=== PATIENT | female | born 1945 ===

== ENCOUNTER → 2023-06-08 11:22 | Outpatient (REF) | payer MEDICARE, OTHER, SELFPAY | LOC: MRI 3T 11:22 | PROVIDERS: ATTENDING PHYSICIAN Orthopaedic Surgery; FAMILY PHYSICIAN Family Medicine | DX: M25.562 Pain in left knee (principal) | CPT/HCPCS: 73721 ==

== ENCOUNTER 2024-06-19 19:02 | Observation (INO) | payer OTHER, SELFPAY ==
[2024-06-19] VITALS (8 sets, daily range): BP systolic 118–159; BP diastolic 62–95; BMI 17.6
[2024-06-19 16:29] LABS: % Basophils 0.7 % (0-2); % Eosinophils 3.4 % (0-6); % Immature Granulocytes 0.6 % (0-0.5); % Lymphocytes 15.2 % (20.5-51.1); % Monocytes 10.2 % (1.7-9.3); % Neutrophils 69.9 % (42.2-75.2); Absolute Basophils 0.1 10^3/uL (0-0.2); Absolute Eosinophils 0.3 10^3/uL (0-0.7); Absolute Immature Granulocytes 0.1 10^3/uL (0-0.05); Absolute Lymphocytes 1.5 10^3/uL (1.2-3.4); Hematocrit 35.7 % (37.0-47.0); Hemoglobin 11.8 g/dL (12.0-16.0); Mean Corp Hgb Conc. 33.1 g/dL (33.0-37.0); Mean Corpuscular Hgb 25.4 pg (27.0-31.0); Mean Corpuscular Volume 76.9 fL (81.0-99.0); Mean Platelet Volume 8.1 fL (7.4-10.4); Nucleated Red Blood Cells % 0 %; Platelet Count 364 10^3/uL (130-400); Red Blood Cell Count 4.64 10^6/uL (4.20-5.40); Red Cell Dist. Width 13.8 % (11.5-14.5); White Blood Cell Count 9.9 10^3/uL (4.8-10.8)
[2024-06-19 16:47] LABS: ALT (SGPT) 46 U/L (0-35); AST (SGOT) 27 U/L (14-36); Albumin 3.7 g/dl (3.5-5.0); Alkaline Phosphatase 102 U/L (38-126); Blood Urea Nitrogen 18 mg/dl (7-17); Calcium 9.2 mg/dl (8.4-10.2); Carbon Dioxide 29 mmol/L (22-30); Chloride 92 mmol/L (98-107); Estimated Creatinine Clearance 38 ml/min; Glucose 113 mg/dl (70-99); Lipase 351 U/L (23-300); Sodium 129 mmol/L (135-145); Total Bilirubin 0.6 mg/dl (0.2-1.3); Total Protein 6.2 g/dl (6.3-8.2); eGFR > 60.00
[2024-06-19] MEDS: ZOFRAN ODT (ORALLY DISINTEGRATING) 4 MG PO (17:34)
[2024-06-19] MEDS: TYLENOL 650 MG PO (17:37)
[2024-06-19] MEDS: ROXICODONE 5 MG PO (17:38)
--- NOTE | 2024-06-19 17:56 | ED.GENMED ---
History of Present Illness
General
Chief Complaint: Back Pain
Time Seen by Provider: 06/19/24 15:31
History of Present Illness
History of Present Illness:
78-year-old female presents from [facility] for evaluation of intractable back pain. She had a fall approximately 1 month ago and was felt to have sustained rib injuries, subsequently was taken back to the hospital at [facility] 1 week ago due to a repeated fall and inability to get up. She was admitted to the hospital at that time due to a thoracic spine compression fracture and 4 days ago was discharged to nursing care. She has been on tramadol and lidocaine
patches without pain relief and has been getting essentially no physical therapy at her facility. She is unable to get herself up to go to the bathroom at this time. Family and the patient are not pleased with the care at [facility] and are
requesting alternative nursing facility. She denies any numbness or weakness in the legs and denies any difficulty with urination
Past History
Past History
ED Past Medical History: None
ED Past Surgical History: None
Social History
Tobacco: Non-smoker
Alcohol: None
Drug: None
Review of Systems
Review of Systems
Allergies reviewed?: Yes
All Other Systems: ROS reviewed and negative except as documented in HPI and ROS
Phy Exam
Physical Exam
Physical Exam:
GEN: Well appearing, NAD, WDWN
HEENT: Oral mucosa moist, no scleral icterus
Cardiac: Regular rate
Lung: No respiratory distress, no tachypnea
MSK: No gross deformity or injuries
Skin: Good color, no pallor or jaundice, no rashes
Neuro: AO x3, moves all extremities freely, lower extremity strength is intact
Psych: Calm, cooperative
Course
Orders/Labs/Results
Orders:
Orders
06/19/24 16:19
Complete Blood Count/With Diff Urgent
Comprehensive Metabolic Panel Urgent
Lipase Urgent
06/19/24 16:49
Acetaminophen [Tylenol] 650 mg PO NOW STA
Oxycodone [Roxicodone] 5 mg PO NOW STA
CR Lumbar Spine Comp Min 4 Vw* Urgent
Comment:
Reason For Exam: back injury
CR Thoracic Spine 3 Views Urgent
Comment:
Reason For Exam: back injury
06/19/24 17:04
Urinalysis Reflex To Culture Urgent
06/19/24 17:32
Ondansetron Orally Disint [Zofran Odt (Orally Disintegrating)] 4 mg .ROUTE .STK-MED ONE
06/19/24 17:33
Ondansetron Orally Disint [Zofran Odt (Orally Disintegrating)] 4 mg PO NOW STA
Abnormal Lab Results
06/19/24
16:19
Hgb 11.8 L g/dL
(12.0-16.0)
Hct 35.7 L %
(37.0-47.0)
MCV 76.9 L fL
(81.0-99.0)
MCH 25.4 L pg
(27.0-31.0)
Abs Immat Gran (auto) 0.1 H 10^3/uL
(0-0.05)
Absolute Neuts (auto) 7.0 H 10^3/uL
(1.4-6.5)
Absolute Monos (auto) 1.0 H 10^3/uL
(0.1-0.6)
Immature Gran % 0.6 H %
(0-0.5)
Lymphocytes % 15.2 L %
(20.5-51.1)
Monocytes % 10.2 H %
(1.7-9.3)
Sodium 129 L mmol/L
(135-145)
Chloride 92 L mmol/L
(98-107)
BUN 18 H mg/dl
(7-17)
Glucose 113 H mg/dl
(70-99)
ALT 46 H U/L
(0-35)
Total Protein 6.2 L g/dl
(6.3-8.2)
Lipase 351 H U/L
(23-300)
06/19/24 16:19
06/19/24 16:19
Vital Signs
Initial and Last Documented VS:
Initial Vital Signs
Temp Pulse Resp BP Pulse Ox
98.2 F 85 16 126/74 98
06/19/24 13:14 06/19/24 13:14 06/19/24 13:14 06/19/24 13:14 06/19/24 13:14
Last Documented Vital Signs
Temp Pulse Resp BP Pulse Ox
98.2 F 70 17 125/75 99
06/19/24 13:14 06/19/24 17:03 06/19/24 17:03 06/19/24 17:03 06/19/24 17:03
MDM/Problems Addressed
MDM/Problems Addressed:
At this time the patient needs half-way care and physical therapy due to severe pain from a T10 fracture. The fracture does not appear severe on x-rays thus do not feel that she would benefit from a vertebroplasty at this time. Will admit
to the hospital for case management and PT OT evaluations as the patient and family are not willing to return to her current nursing facility
*Critical Care Note
Total Time (30-74mins, 75-104mins- exclusive of procedures): Not Applicable
ED Attending Note
-
Portions of this chart may have been created with voice recognition software.� Occasional wrong word or��sound alike� substitutions may have occurred due to the inherent limitations of voice recognition software.
Discharge Plan
Departure
Patient Disposition: Admit
Date of Disposition: 06/19/24
Time of Disposition: 17:59
Admit to: Med/Surg
Presentation/result/management discussed w/ accepting MD/DO: Hospitalist
Discharge Problem:
Compression fracture of T10 vertebra, Ambulatory dysfunction, Intractable back pain
Prescriptions:
No Action
diazepam [Valium] 5 mg Tablet
2.5 mg PO BIDPRN PRN (Reason: spasms/anxiety)
Rx Instructions:
Take for 14 days. Started on 06/15/2024
losartan 50 mg Tablet
50 mg PO DAILY
clonidine HCl 0.1 mg Tablet
0.1 mg PO DAILY
lidocaine [Aspercreme (lidocaine)] 4 % Adhesive Patch,Medicated
1 patch TOPICAL DAILY
Rx Instructions:
lower back
polyethylene glycol 3350 [Miralax] 17 gram Powder In Packet
17 g PO [id number] PRN (Reason: no bm in 72 hours)
ondansetron HCl 4 mg Tablet
4 mg PO Q6HPRN PRN (Reason: nausea/vomiting)
sennosides-docusate sodium 8.6-50 mg Tablet
1 tab-cap PO BID
Theragen Tablet
1 tab PO DAILY
amlodipine 5 mg Tablet
5 mg PO DAILY
tramadol 50 mg Tablet
50 mg PO Q6HPRN PRN (Reason: MODERATE PAIN)
flaxseed oil 1,000 mg Capsule
1,000 mg PO DAILY
magnesium hydroxide [Milk of Magnesia] 400 mg/5 mL Suspension
30 ml PO [id number] PRN (Reason: no bm in 3 days)
bisacodyl [Dulcolax (bisacodyl)] 10 mg Suppository
10 mg OK DAILYPRN PRN (Reason: no result from mom)
cyanocobalamin (vitamin B-12) 1,000 mcg/mL Solution
1,000 mcg IM QMONTH
azelastine 137 mcg (0.1 %) [place],Non-Aerosol
1 spray INTRANASAL BID
albuterol sulfate [Proventil HFA] 90 mcg/actuation Hfa Aerosol Inhaler
2 puff INHALATION R Q6HPRN PRN (Reason: SOB/WHEEZING)
vitamin E 268 mg (400 unit) Capsule
268 mg PO DAILY
cholecalciferol (vitamin D3) 25 mcg (1,000 unit) Tablet
75 mcg PO DAILY
PreserVision AREDS-2 250-90-40-1 mg Capsule
1 tab PO DAILY
Referrals:
Kaushik Vale MD [Family Provider] -
Interventions
Interventions:
*Risk Screen - Suicide Last Done: 06/19/24 13:15
*General Assessment Last Done: 06/19/24 15:41
*Neglect/Abuse Screening Last Done: 06/19/24 13:15
*ED COVID-19 Vaccine History Last Done: 06/19/24 15:41
ED-Musculoskeletal Assessment Last Done: 06/19/24 15:44
Discharge Date and Time
Print Language: QATARI
--- NOTE | 2024-06-19 18:22 | HPS.HSE ---
Family Physician
-
Family Physician: Kaushik Vale
Chief Complaint
-
Lower back pain
History of Present Illness
78-year-old female from [facility] for evaluation of intractable back. She reports a fall approximately 1 month ago sustaining rib injuries. She was seen at [facility] 1 week ago due to repeated fall and inability
to get up she was admitted to the hospital due to thoracic spine compression fracture and was discharged 4 days ago to a custodial that does not have physical therapy. She has been using tramadol with lidocaine patches without any relief. She
reports she is unable to get herself up to the bathroom. Both her and her family are not pleased with the care at [facility] and are requesting alternative nursing facility.. She is able to lift both left and right legs including bend the
knee without any back pain however she has most of the pain when standing. She denies headache, fever, chills, chest pain, palpitations, shortness breath, cough, abdominal pain, nausea, vomit, diarrhea, urinary symptoms.
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
Medical History
Past Medical History
Past Medical History: Reports Other
Additional Past Medical History:
T7, T8, T10 compression fractures approximately 1 month old May 2024\\
HTN
vitamin B12 deficiency
vitamin D deficiency
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
Paramyotonia
Anxiety
Daily alcohol use
Chronic urinary incontinence
Past Surgical History: Reports Other
Additional Past Surgical History:
Breast implants
Hysterectomy
Bladder laceration during hysterectomy
Social History
Tobacco: Non-smoker
Alcohol: Daily (1 glass of red wine daily)
Drug: None
Personal: Single
Employment: Retired
Family History
Family History: Other (Mother history para myotonia father emphysema)
Allergies / Home Medications
Allergies reflects when Allergies were last updated in [facility].
Home Medications with original date entered in [facility]
Allergy/Medication List:
Allergies
Allergy/AdvReac Type Severity Reaction Status Date / Time
cephalexin Allergy Unknown Verified 06/19/24 13:01
Latex, Natural Rubber Allergy Itching Verified 06/19/24 13:01
Home Medications
diazepam 5 mg tablet (Valium) 2.5 mg PO BIDPRN PRN spasms/anxiety 03/12/23
albuterol sulfate 90 mcg/actuation aerosol inhaler 2 puff inhalation R Q6HPRN PRN SOB/WHEEZING 06/19/24
amlodipine 5 mg tablet 5 mg PO DAILY 06/19/24
azelastine 137 mcg (0.1 %) nasal spray 1 spray intranasal BID Allergies 06/19/24
bisacodyl 10 mg rectal suppository (Dulcolax (bisacodyl)) 10 mg UT DAILYPRN PRN no result from mom 06/19/24
cholecalciferol (vitamin D3) 25 mcg (1,000 unit) tablet 75 mcg PO DAILY 06/19/24
clonidine HCl 0.1 mg tablet 0.1 mg PO DAILY 06/19/24
cyanocobalamin (vitamin B-12) 1,000 mcg/mL injection solution 1,000 mcg IM QMONTH 06/19/24
flaxseed oil 1,000 mg capsule 1,000 mg PO DAILY Supplement 06/19/24
lidocaine 4 % topical patch (Aspercreme (lidocaine)) 1 patch topical DAILY mild pain 06/19/24
losartan 50 mg tablet 50 mg PO DAILY 06/19/24
magnesium hydroxide 400 mg/5 mL oral suspension (Milk of Magnesia) 30 ml PO [id number] PRN no bm in 3 days 06/19/24
ondansetron HCl 4 mg tablet 4 mg PO Q6HPRN PRN nausea/vomiting 06/19/24
polyethylene glycol 3350 17 gram oral powder packet (Miralax) 17 g PO [id number] PRN no bm in 72 hours 06/19/24
sennosides 8.6 mg-docusate sodium 50 mg tablet 1 tab-cap PO BID 06/19/24
therapeutic multivitamin 1 tab PO DAILY 06/19/24
tramadol 50 mg tablet 50 mg PO Q6HPRN PRN MODERATE PAIN 06/19/24
vit C 250 mg-vit E 90 mg-zinc 40 mg-copper 1 [id number]-[id number] capsule (PreserVision AREDS-2) 1 tab PO DAILY 06/19/24
vitamin E 268 mg (400 unit) capsule 268 mg PO DAILY 06/19/24
Review of Systems
-
History Source: Patient and Family (Daughter Luara at bedside)
A 12 point ROS was completed and negative except as noted: Yes
Constitutional: Denies Fever or Chills
EENT: Denies Sore Throat or Runny Nose
Respiratory: Denies Cough or Trouble Breathing
Cardiac: Reports Other (Chronic right rib pain from recent fractures); Denies Chest Pain, Diaphoresis or Palpitations
Abdomen/GI: Denies Abdominal Pain, Nausea, Vomiting, Diarrhea, Constipated, Bloody Stools or Black Stools
: Reports Incontinence (Chronic); Denies Dysuria, Frequency, Flank Pain or Difficulty Voiding
Musculoskeletal: Reports Other (Chronic lower back pain with standing); Denies Joint Pain, Muscle Pain, Muscle Stiffness or Edema
Skin: Denies Itching or Rash
Neurological: Reports Weakness (Lower legs with standing); Denies Dizzy or Headache
Endocrine: Reports No Symptoms
Hematologic/Lymphatic: Reports No Symptoms
Psych: Reports Anxiety
Physical Exam
Vital Signs
Vital Signs
Temp Pulse Resp BP Pulse Ox
98.2 F 70 17 125/75 99
06/19/24 13:14 06/19/24 17:03 06/19/24 17:03 06/19/24 17:03 06/19/24 17:03
Physical Exam
General: Conversant and Cachectic; No Fever or Chills
HEENT: NormoCephalic, Anicteric, Moist mucous membranes, PERRLA, Nunda Conjunctivae and No Ptosis
Respiratory: Clear; No Wheezes, Rales or Rhonchi
Cardiac: S1/S2 and Regular Rhythm; No Murmur, Rub or Gallop
Breast: Deferred by me
GI: Soft, Non Tender, Non Distended, Normal Bowel Sounds and No Hepatosplenomegaly
Rectal: Deferred by Provider
Genito-urinary: Deferred by me
Musculoskeletal: No Clubbing, No Cyanosis, No Edema and Other (Negative straight leg test bilateral legs, negative pain with knees bent to lower back patient reports pain with standing and lower back)
Skin: Warm and Dry; No Rash or Jaundice
Neuro: AO x 3 and No Sensory Deficits; No Slurred Speech, Facial Droop, Tremors or Sedated
Psych: Anxious
Laboratory Results
-
06/19/24 16:19
06/19/24 16:19
Laboratory Results
Total Bilirubin 0.6 mg/dl (0.2-1.3) 06/19/24 16:19
AST 27 U/L (14-36) 06/19/24 16:19
ALT 46 U/L (0-35) H 06/19/24 16:19
Alkaline Phosphatase 102 U/L (38-126) 06/19/24 16:19
Lipase 351 U/L (23-300) H 06/19/24 16:19
Data Reviewed
-
CT Scan: Report Reviewed by me
Lab Data: Labs Reviewed by me
Impression/Plan
-
Impression/plan:
Observation MedSurg
#Fall with chronic T7, T8, endplate T10 compression fracture/chronic ambulatory dysfunction
-Pain control no relief with tramadol/lidocaine patch
-Consult PT/OT/case management for SNF facility versus long-term care ( patient was currently at [facility] not receiving any care)
-Continue bowel regimen with Dulcolax as needed, MiraLAX 17 g p.o. every 72 hours, Senokot 1 tab p.o. twice daily
-Tylenol as needed mild pain, oxycodone 5 mg moderate pain, oxycodone 10 mg severe pain
-Zofran as needed
-Consult IR for eval Kyphoplasty
Lumbar thoracic spine x-ray: Mild anterior inferior wedge compression deformity of T7, mild superior plate compression deformity of T8,
and minor superior endplate compression deformity of T10. -Age indeterminant
#Hyponatremia poss 2/2 daily alcohol use
-NA 129
Check urine NA, urine Osmo, serum Osmo, TSH with free T4 reflex
#Daily alcohol use
-Drinks 1 glass wine daily last drink was 1 week ago prior 2-3 beers daily changed to wine 2 months ago
#Paramyotonia hx
Patient states her daughter and mother had same condition
-Patient reports with pain gets eyes crossed with cold her legs lock
#Anxiety
-Continue Valium 2.5 mg twice daily as needed patient has been on for 20 years
#HTN�benign
BP 125/75
-Continue losartan 50 mg daily, clonidine 0.1 mg p.o. daily
#Vitamin B12 deficiency
Patient is vitamin B12 1000 mcg IM q. monthly
#Vitamin D deficiency
-Continue vitamin D3 p.o. daily
#Chronic urinary incontinence
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
Consult dietary
DVT prophylaxis
Subcu heparin
Full code
--- NOTE | 2024-06-19 18:40 | W.PN.UPDATE ---
Update Note
Progress Note Update
Ms. 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
rib injuries and multiple vertebral compression fractures who presents now from rehab facility with intractable back pain. She was evaluated at [facility] 1 week ago for her pain and discharge 4 days ago to a nursing facility. The
patient and her family have been dissatisfied with the care at the nursing facility and are concerned with her ongoing back pain, which is why they present to [facility] today. Patient does not have any bowel or bladder incontinence. She
is able to move her bilateral lower extremities through a reasonable range of motion without significant back pain. However, her ambulation is very limited due to pain when weightbearing. Of note, per the patient's daughter who is at bedside,
patient has had notable cognitive decline over the past 12 months with suspected new onset dementia, which has not yet been formally diagnosed. The patient lives at home alone and has a long-term boyfriend. The patient's daughter also notes that
she has been prescribed Valium for approximately the past 20 years for treatment of her muscle disorder. Patient reports drinking 1 glass of wine daily, last drink 1 week ago. She does not smoke.
In the ED she was hemodynamically stable and afebrile. Labs were significant for mild anemia with a hemoglobin of 11.8 MCV 76.9, mild to moderate hyponatremia with a serum sodium of 129, very mildly elevated ALT of 46, and mildly elevated lipase of
351. UA is pending. X-ray imaging of her thoracolumbar spine showed age-indeterminate mild compression deformities of T7-T10. She has been given opiates for pain control and admitted for further evaluation and management.
Gen-AAOx3, NAD
HEENT-NC, AT, anicteric, clear oral mm
Neck-supple
CV-reg, no M, +S1/S2
Lungs-clear B/L
Abd-soft, NT, ND
Musculoskeletal-no edema, no deformity, decreased muscle bulk throughout
Skin-warm and dry
Neuro-grossly non-focal
Psych-calm, cooperative
Ambulatory dysfunction:
-Multifactorial in the setting of back pain due to compression fractures in addition to reported cognitive decline with possible new onset dementia
-PT/OT to evaluate for skilled needs
-Case management to help patient and family determine appropriate placement potentially including long-term care if she is no longer able to care for self
-Pain control as needed with caution to avoid oversedation especially considering long-term benzo use
-IR consult to evaluate possibility of kyphoplasty for vertebral compression fractures, obtain MRI
Hyponatremia:
-Mild to moderate
-Unclear chronicity but suspect due to her paramyotonia congenita
-No overt acute neurologic changes
-Avoid rapid correction, can give gentle normal saline and recheck serum sodium later this evening
-Check serum electrolytes and osmolality
Paramyotonia congenita:
-She does not take mexiletine or acetazolamide due to poorly tolerating these medications in the past
-Reportedly has been treated with Valium for the past 20 years for this condition, will continue Valium as needed to avoid withdrawal
CODE STATUS: Full code
[2024-06-19 20:32] LABS: Osmolality Urine 357 mOsm/kg (300-900); Urine Albumin 3+ (Neg - Trace); Urine Bilirubin Negative (Negative); Urine Character Slightly Cloudy (Clear); Urine Color Yellow; Urine Glucose Negative (Negative); Urine Ketone Negative (Negative); Urine Leukocyte 3+ (Negative); Urine Nitrite Negative (Negative); Urine Occult Blood 2+ (Negative); Urine Specific Gravity 1.015 (<1.030); Urine Urobilinogen Negative (Neg - 1+)
[2024-06-19 20:38] LABS: Urine White Cell >100 /HPF (0-5)
[2024-06-19 20:44] LABS: Urine Sodium 12 mmol/L (30-90)
[2024-06-19 20:47] LABS: Osmolality Serum 271 mOsm/kg (275-300)
[2024-06-19] MEDS: NSS 1000 IV (21:23)
[2024-06-19] MEDS: HEPARIN 5000 UNITS SC (21:26)
--- NOTE | 2024-06-19 21:30 | PTCARENOTE ---
Receive pt from ER. Pt pulled over to bed from the stretcher. Pt alert oriented X3, pleasant, in no distress. Pt states that her back pain is manageable (3-4/10).Pt oriented to the room, call minaya within reach. VSS (T=98.3, HR=71, RR=18, FM=340/80,
SpO2=98-99% on RA). Pt complains about some nausea. She was given Zofran earlier in the ER. Pt daughter at the bedside helping with medical hx. Pt daughter states that the pt cognitive fct is declining and can be forgetful. Bed alarm placed for pt
safety. IVFs infusing as per order. Will continue to monitor the pt.
[2024-06-19 21:33] LABS: TSH Reflex To Free T4 1.92 uIU/ml (0.47-4.68)
[2024-06-20] MEDS: ROXICODONE 5 MG PO (05:12)
[2024-06-20 06:59] LABS: % Basophils 1.2 % (0-2); % Eosinophils 5.8 % (0-6); % Immature Granulocytes 0.3 % (0-0.5); % Lymphocytes 17.3 % (20.5-51.1); % Monocytes 10.2 % (1.7-9.3); % Neutrophils 65.2 % (42.2-75.2); Absolute Basophils 0.1 10^3/uL (0-0.2); Absolute Eosinophils 0.4 10^3/uL (0-0.7); Absolute Lymphocytes 1.2 10^3/uL (1.2-3.4); Absolute Monocytes 0.7 10^3/uL (0.1-0.6); Absolute Neutrophils 4.4 10^3/uL (1.4-6.5); Hematocrit 32.8 % (37.0-47.0); Hemoglobin 11.1 g/dL (12.0-16.0); Mean Corp Hgb Conc. 33.8 g/dL (33.0-37.0); Mean Corpuscular Hgb 26.1 pg (27.0-31.0); Mean Corpuscular Volume 77.2 fL (81.0-99.0); Mean Platelet Volume 8.7 fL (7.4-10.4); Nucleated Red Blood Cells % 0 %; Platelet Count 373 10^3/uL (130-400); Red Blood Cell Count 4.25 10^6/uL (4.20-5.40); Red Cell Dist. Width 13.6 % (11.5-14.5); White Blood Cell Count 6.8 10^3/uL (4.8-10.8)
[2024-06-20 07:15] VITALS: BP 154/73
[2024-06-20 07:28] LABS: Blood Urea Nitrogen 12 mg/dl (7-17); Calcium 8.7 mg/dl (8.4-10.2); Carbon Dioxide 29 mmol/L (22-30); Chloride 95 mmol/L (98-107); Estimated Creatinine Clearance 43 ml/min; Glucose 94 mg/dl (70-99); Potassium 3.7 mmol/L (3.5-5.1); Sodium 127 mmol/L (135-145); eGFR > 60.00
[2024-06-20] MEDS: VALIUM 2.5 MG PO (07:30)
[2024-06-20 07:46] LABS: Blood Urea Nitrogen 12 mg/dl (7-17); Calcium 8.8 mg/dl (8.4-10.2); Carbon Dioxide 27 mmol/L (22-30); Chloride 95 mmol/L (98-107); Estimated Creatinine Clearance 49 ml/min; Glucose 97 mg/dl (70-99); Potassium 3.6 mmol/L (3.5-5.1); Sodium 131 mmol/L (135-145); eGFR > 60.00
[2024-06-20] MEDS: CATAPRES 0.1 MG PO (08:49)
[2024-06-20] MEDS: COZAAR 50 MG PO (08:49)
[2024-06-20] MEDS: MIRALAX 17 GRAMS PO (08:49)
[2024-06-20] MEDS: NORVASC 5 MG PO (08:50)
[2024-06-20] MEDS: HEPARIN 5000 UNITS SC ×2 (08:50→19:57)
[2024-06-20] MEDS: VITAMIN D3 (cholecalciferol) 75 MCG PO (08:51)
[2024-06-20] MEDS: THERAGRAN 1 TABLET PO (08:51)
[2024-06-20] MEDS: ROXICODONE 10 MG PO ×2 (09:20→20:00)
[2024-06-20 09:56] VITALS: BP 131/70; BP 139/69; BP 149/64; PULSE 79; O2SAT 98
[2024-06-20 09:57] VITALS: BP 131/70; BP 139/69
--- NOTE | 2024-06-20 10:50 | CM ---
Addendum entered by Faith Low 06/20/24 12:18:
Daughter Delfina is here and states that POA to be completed tomorrow. OBS/OROURKE form reviewed and provided to her for signature. Patient was at [facility] for 4/5 days. But they do not want her to return there as she was there for short term
care only. Patient family asking for referrals to [facility], [facility] and [facility]. Patient family asking to talk to Physician about concerns. CM sent tt to physician to talk to patient family. CM will continue to follow for discharge planning needs.
Original Note:
Patient seen at bedside, family here but not POA. Family members referred CM to POA. CM will continue to try to follow for discharge planning needs,.
Plan;pending family discussion re SNF
--- NOTE | 2024-06-20 13:03 | W.PN.HOSP.TC ---
Today's Communication/Plan
-
Assessment / Plan
Assessment / Plan
Ms. 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
she sustained rib injuries and multiple vertebral compression fractures who presented now from rehab facility with intractable back pain. She was evaluated at [facility] 1 week prior to arrival for her pain and discharged 4 days prior to
arrival to a nursing facility. The patient and her family have been dissatisfied with the care at the nursing facility and are concerned with her ongoing back pain, which is why they presented to [facility]. Of note, per the patient's
daughter who is at bedside, patient has had notable cognitive decline over the past 12 months with suspected new onset dementia, which has not yet been formally diagnosed. The patient lives at home alone and has a long-term boyfriend. The
patient's daughter also notes that she has been prescribed Valium for approximately the past 20 years for treatment of her muscle disorder.
In the ED she was hemodynamically stable and afebrile. Labs were significant for mild anemia with a hemoglobin of 11.8 MCV 76.9, mild to moderate hyponatremia with a serum sodium of 129, very mildly elevated ALT of 46, and mildly elevated lipase of
351. UA unremarkable. X-ray imaging of her thoracolumbar spine showed age-indeterminate mild compression deformities of T7-T10. She was given opiates for pain control and admitted for further evaluation and management.
Gen-AAOx3, NAD
HEENT-NC, AT, anicteric, clear oral mm
Neck-supple
CV-reg, no M, +S1/S2
Lungs-clear B/L
Abd-soft, NT, ND
Musculoskeletal-no edema, no deformity, decreased muscle bulk throughout
Skin-warm and dry
Neuro-grossly non-focal
Psych-calm, cooperative
Ambulatory dysfunction:
-Multifactorial in the setting of back pain due to compression fractures in addition to reported cognitive decline with possible new onset dementia
-PT/OT recommending SNF
-Case management assisting with dispo arrangements
-Pain control as needed with caution to avoid oversedation especially considering long-term benzo use
-Address vertebral compression fractures as able
Vertebral compression fractures:
-Age-indeterminate mild compression deformities at T7-T10
-IR recommending MRI for further evaluation
-Will follow-up with IR regarding potential for kyphoplasty
-Continue pain control as needed
-PT/OT
Hyponatremia:
-Mild to moderate
-Improved
-No overt acute neurologic changes
-Urine sodium low suggesting hypovolemic hyponatremia with appropriate renal retention of sodium
-Was given gentle IV fluids at time of admission, will monitor off IV fluids for now
Paramyotonia congenita:
-She does not take mexiletine or acetazolamide due to poorly tolerating these medications in the past
-Reportedly has been treated with Valium for the past 20 years for this condition, will continue Valium as needed to avoid withdrawal
Possible cognitive decline:
-Patient's daughter reports notable cognitive decline and difficulty with self-care over the past year
-Will need outpatient follow-up for dementia evaluation
-Case management involved for assistance with dispo arrangements
CODE STATUS: Full code
Anticipated Discharge: 24 - 48 hours
Subjective/Interval History
-
Date of Service: June 20, 2024
Patient was seen and examined at bedside this morning. No acute events overnight. Comfortable.
Objective Data
-
Labs:
Laboratory Results
06/20/24 06/20/24
06:08 07:10
WBC 6.8
Hgb 11.1 L
Hct 32.8 L
Plt Count 373
Sodium 127 L 131 L
Potassium 3.7 3.6
Chloride 95 L 95 L
Carbon Dioxide 29 27
BUN 12 12
Creatinine 0.8 0.7
Glucose 94 97
Calcium 8.7 8.8
Vital Signs:
Vital Signs
Temp Pulse Resp BP Pulse Ox
98.2 F 71 16 154/73 97
06/20/24 07:15 06/20/24 08:49 06/20/24 07:15 06/20/24 08:49 06/20/24 07:15
I&O
06/19/24 06/20/24 06/21/24
06:59 06:59 06:59
Intake Total 520 / 520
Balance 520 / 520
Review of Systems
-
History Source: Patient
All other systems: Reviewed and negative
Musculoskeletal: Reports Joint Pain (Back pain)
Physical Exam
-
General: No Apparent Distress
[2024-06-20 15:52] VITALS: BP 131/59
--- NOTE | 2024-06-20 16:09 | PTCARENOTE ---
Pt asking if she can have her diet changed to IDDS 6 from IDDS 5. She does a regular diet at home, will do softer foods and she knows her limitations. She asked for the IDDS 5 yesterday just out of precaution with her weakness. Pt took medications
find today without any coughing, one at a time with water. Made Dr. Cantrell aware, making changes with pt's diet.
[2024-06-20] MEDS: TYLENOL 650 MG PO (19:59)
[2024-06-20 23:45] VITALS: BP 151/77
[2024-06-21] MEDS: TYLENOL 650 MG PO (04:46)
[2024-06-21] MEDS: ROXICODONE 10 MG PO (04:46)
[2024-06-21] MEDS: NORVASC 5 MG PO (08:18)
[2024-06-21] MEDS: HEPARIN 5000 UNITS SC (08:18)
[2024-06-21] MEDS: THERAGRAN 1 TABLET PO (08:19)
[2024-06-21] MEDS: COZAAR 50 MG PO (08:19)
[2024-06-21] MEDS: CATAPRES 0.1 MG PO (08:19)
[2024-06-21] MEDS: VITAMIN D3 (cholecalciferol) 75 MCG PO (08:19)
[2024-06-21 08:35] VITALS: BP 159/69
--- NOTE | 2024-06-21 08:43 | W.PN.HOSP.TC ---
Today's Communication/Plan
-
see A/P
Assessment / Plan
Assessment / Plan
Ms. 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
sustained rib injuries and multiple vertebral compression fractures; she presented now from rehab facility with intractable back pain. She was evaluated at [facility] 1 week prior for her pain and discharged 4 days prior to arrival to a
nursing facility. The patient and her family have been dissatisfied with the care at the nursing facility and are concerned with her ongoing back pain, which is why they presented to [facility]. Of note, per the patient's daughter, patient
has had notable cognitive decline over the past 12 months with suspected new onset dementia, which has not yet been formally diagnosed. The patient lives at home alone and has a long-term boyfriend. The patient's daughter also notes that she has
been prescribed Valium for approximately the past 20 years for treatment of her muscle disorder.
In the ED, she was hemodynamically stable and afebrile. Labs were significant for mild anemia with a hemoglobin of 11.8 MCV 76.9, mild to moderate hyponatremia with a serum sodium of 129, very mildly elevated ALT of 46, and mildly elevated lipase
of 351. UA unremarkable. X-ray imaging of her thoracolumbar spine showed age-indeterminate mild compression deformities of T7-T10. She was given opiates for pain control and admitted for further evaluation and management.
A/P:
# Ambulatory dysfunction: Multifactorial in the setting of back pain due to muscular strain, compression fractures, reported cognitive decline with possible new onset dementia
PT/OT recommending SNF. Case management assisting with dispo arrangements
Pain control with Tylenol and Motrin
Avoiding opiate with constipation
PT/OT recommending SNF.
# R sided lumbar area pain likely MSL strain
lidocaine patch over R lumbar area
Pain control with Tylenol and Motrin
Avoiding opiate with constipation
PT/OT recommending SNF.
# Vertebral compression fractures, however pt denies to midline back pain
Age-indeterminate mild compression deformities at T7-T10
MRI thoracic and lumbar spine confirmed 15% compression fracture of T10, 25% compression fracture of T7, and 30% compression fracture of T8. Also posterior bulging of the T7-8 intervertebral disc associated with mild broad-based impingement.
Currently I do NOT think there is need for IR eval for kyphoplasty without midline back pain- discussed with pt and daughter
# Hyponatremia, Mild to moderate
Improved to 131
No overt acute neurologic changes
# Paramyotonia congenita:
She does not take mexiletine or acetazolamide due to poorly tolerating these medications in the past
Reportedly has been treated with Valium for the past 20 years for this condition, will continue Valium as needed to avoid withdrawal
# Possible cognitive decline:
Patient's daughter reports notable cognitive decline and difficulty with self-care over the past year
Will need outpatient follow-up for dementia evaluation
Case management involved for assistance with dispo arrangements
# Constipation likely opiate induced
stop further oxycodone
Bowel regimen with Senokot-S and Miralax
DVT ppx: Lovenox SQ
CODE STATUS: Full code
DW RN
DW CM
DW daughter on the phone
total time spent 51 min
Anticipated Discharge: 24 - 48 hours
Subjective/Interval History
-
Date of Service: June 21, 2024
Objective Data
-
Vital Signs:
Vital Signs
Temp Pulse Resp BP Pulse Ox
36.9 C 69 18 159/69 97
06/21/24 08:35 06/21/24 08:35 06/21/24 08:35 06/21/24 08:35 06/21/24 08:35
I&O
06/20/24 06/21/24 06/22/24
06:59 06:59 06:59
Intake Total 520 / 520 970 / 970
Balance 520 / 520 970 / 970
Review of Systems
-
History Source: Patient
Abdomen/GI: Reports Constipated
Musculoskeletal: Reports Muscle Pain (R sided muscular pain)
Physical Exam
-
General: Well Developed, Well Nourished, No Apparent Distress, Comfortable and Conversant
HEENT: Normocephalic and Atraumatic
Respiratory: Clear to Auscultation and Non Labored Respirations; Negative Accessory Resp Muscle Use
Cardiac: Regular Rhythm and S1/S2
GI: Soft, Nontender, Nondistended and Normal Bowel Sounds
Musculoskeletal: Other (R lumbar area pain, no midline pain )
Skin: Warm
Neuro: Awake and Alert
Psych: Calm
Data Reviewed
-
MRI: Report Reviewed by me, Discussed with Patient and Discussed with Family
Labs: Labs Reviewed by me
[2024-06-21] MEDS: MOTRIN 400 MG PO ×2 (09:30→20:46)
[2024-06-21] MEDS: LIDOCAINE 4% PATCH 1 PATCH TOPICAL (09:30)
[2024-06-21] MEDS: MIRALAX 17 GRAMS PO (09:30)
--- NOTE | 2024-06-21 10:09 | CM ---
Addendum entered by Faith Low 06/21/24 15:45:
Patient accepted for transfer to [facility] when auth in place. Please call report to [phone]. Transfer forms placed on chart. CM will continue to follow for discharge planning needs.
Original Note:
Family here, Delfina and reviewed options for SNF. CM awaiting response from [facility], [facility] is unable to accept patients today due to holiday. CM awaiting update from [facility] and will continue to follow for discharge planning needs.
'
Plan; SNF
[2024-06-21 11:09] VITALS: BMI 17.6
[2024-06-21] MEDS: ZOFRAN 4 MG IV (13:29)
--- NOTE | 2024-06-21 13:30 | CM ---
Addendum entered by Bailey Barajas 06/21/24 14:41:
Fax back from [employer] stating case is managed by [facility] and to fax clinicals to [facility].
[facility]- spoke with Elva
Case initiated, pended reference # [id number]
clinicals faxed to [phone]
Original Note:
Patient accepted at [facility]
NPI# [id number]
Accepting YAN Hudson NPI# [id number]
TC to [employer] at p#[phone]
call reference# [id number]
Need to fax clinicals with [employer] precert sheet- found at [email or web address]
fax clinicals to [phone]
skilled rehab auth initiated- await [employer] determination.
[2024-06-21 15:19] VITALS: BP 141/54
[2024-06-21] MEDS: LOVENOX 40 MG SC (17:12)
[2024-06-21] MEDS: SENOKOT-S 1 TABLET PO (20:40)
[2024-06-21 23:14] VITALS: BP 163/83
[2024-06-22] MEDS: VALIUM 2.5 MG PO (00:18)
[2024-06-22] MEDS: TYLENOL 650 MG PO (00:18)
[2024-06-22] MEDS: MOTRIN 400 MG PO (05:27)
[2024-06-22 07:15] VITALS: BP 155/77
[2024-06-22] MEDS: VITAMIN D3 (cholecalciferol) 75 MCG PO (08:22)
[2024-06-22] MEDS: SENOKOT-S 1 TABLET PO (08:22)
[2024-06-22] MEDS: COZAAR 50 MG PO (08:22)
[2024-06-22] MEDS: CATAPRES 0.1 MG PO (08:22)
[2024-06-22] MEDS: THERAGRAN 1 TABLET PO (08:22)
[2024-06-22] MEDS: NORVASC 5 MG PO (08:23)
[2024-06-22] MEDS: LIDOCAINE 4% PATCH 1 PATCH TOPICAL (08:23)
[2024-06-22] MEDS: MIRALAX PO (08:24)
--- NOTE | 2024-06-22 09:21 | W.PN.HOSP.TC ---
Addendum entered and electronically signed by Magalie Wagoner MD 06/22/24 15:30:
total DC time 38 min
Original Note:
Today's Communication/Plan
-
dispo planning to SNF
Assessment / Plan
Assessment / Plan
Ms. 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
sustained rib injuries and multiple vertebral compression fractures; she presented now from rehab facility with intractable back pain. She was evaluated at [facility] 1 week prior for her pain and discharged 4 days prior to arrival to a
nursing facility. The patient and her family have been dissatisfied with the care at the nursing facility and are concerned with her ongoing back pain, which is why they presented to [facility]. Of note, per the patient's daughter, patient
has had notable cognitive decline over the past 12 months with suspected new onset dementia, which has not yet been formally diagnosed. The patient lives at home alone and has a long-term boyfriend. The patient's daughter also notes that she has
been prescribed Valium for approximately the past 20 years for treatment of her muscle disorder.
In the ED, she was hemodynamically stable and afebrile. Labs were significant for mild anemia with a hemoglobin of 11.8 MCV 76.9, mild to moderate hyponatremia with a serum sodium of 129, very mildly elevated ALT of 46, and mildly elevated lipase
of 351. UA unremarkable. X-ray imaging of her thoracolumbar spine showed age-indeterminate mild compression deformities of T7-T10. She was given opiates for pain control and admitted for further evaluation and management.
A/P:
# Ambulatory dysfunction: Multifactorial in the setting of back pain due to muscular strain, compression fractures, reported cognitive decline with possible new onset dementia
PT/OT recommending SNF. Case management assisting with dispo arrangements
Pain control with Tylenol and Motrin. Avoiding opiate with constipation
# R sided lumbar area pain likely MSL strain
lidocaine patch over R lumbar area
Pain control with Tylenol and Motrin. Avoiding opiate with constipation
PT/OT recommending SNF.
# Vertebral compression fractures, however pt denies to midline back pain
Age-indeterminate mild compression deformities at T7-T10
MRI thoracic and lumbar spine confirmed 15% compression fracture of T10, 25% compression fracture of T7, and 30% compression fracture of T8. Also posterior bulging of the T7-8 intervertebral disc associated with mild broad-based impingement.
Currently I do NOT think there is need for IR eval for kyphoplasty without midline back pain- discussed with pt, daughter and IR
# Hyponatremia, Mild to moderate
Improved to 131
No overt acute neurologic changes
# Paramyotonia congenita:
She does not take mexiletine or acetazolamide due to poorly tolerating these medications in the past
Reportedly has been treated with Valium for the past 20 years for this condition, will continue Valium as needed to avoid withdrawal
# Possible cognitive decline:
Patient's daughter reports notable cognitive decline and difficulty with self-care over the past year
Will need outpatient follow-up for dementia evaluation
Case management involved for assistance with dispo arrangements
# Constipation likely opiate induced
stop further oxycodone
Bowel regimen with Senokot-S and Miralax
DVT ppx: Lovenox SQ
CODE STATUS: Full code
Dispo: SNF
DW CM
Anticipated Discharge: Today
Subjective/Interval History
-
Date of Service: June 22, 2024
Objective Data
-
Vital Signs:
Vital Signs
Temp Pulse Resp BP Pulse Ox
36.9 C 69 16 155/77 99
06/22/24 07:15 06/22/24 07:15 06/22/24 07:15 06/22/24 07:15 06/22/24 07:15
I&O
02/17/25 02/18/25 02/19/25
06:59 06:59 06:59
Intake Total 970 / 970 600 / 600
Balance 970 / 970 600 / 600
Review of Systems
-
History Source: Patient
Musculoskeletal: Reports Muscle Pain (R sided lumbar muscular pain improved )
Physical Exam
-
General: Well Developed, Well Nourished, No Apparent Distress, Comfortable and Conversant
HEENT: Normocephalic and Atraumatic
Respiratory: Clear to Auscultation and Non Labored Respirations; Negative Accessory Resp Muscle Use
Cardiac: Regular Rhythm and S1/S2
GI: Soft, Nontender, Nondistended and Normal Bowel Sounds
Musculoskeletal: Other (R lumbar area pain improved, no midline pain )
Skin: Warm
Neuro: Awake and Alert
Psych: Calm
Data Reviewed
-
MRI: Report Reviewed by me, Discussed with Patient and Discussed with Family
Labs: Labs Reviewed by me
--- NOTE | 2024-06-22 10:48 | CM ---
Addendum entered by Soraya Mortensen RN 06/22/24 11:39:
Auth received Chanelle spoke with [facility] SNF pt is covered.
LIAM SERRANO [phone]
FAx is down
Addendum entered by Soraya Mortensen RN 06/22/24 11:03:
Correction
[place] [facility]
report [phone]
fax [phone]
Addendum entered by Soraya Mortensen RN 06/22/24 10:58:
Information on auth given dre [place] From Liam Serrano. She said they are in network with [employer].
Chanelle to call [employer] and check on out of network cost if any.
Ambulance requested medical nec completed.
[place]
report [phone]
fax [phone]
Original Note:
TC [facility] ([facility])
authorization for skilled rehab.
Per Mazin, [facility] is OON but since insurance is a PPO she can go to the facility.
Per Mazin, please advise patient there can be OOP costs associated with facility prior transfer. If facility needs to be changed please call back, [facility] updated.
Start date 06/22/24, NRD 06/24/24
Authorization # [id number]
updates to fax# [phone]
[2024-06-22 13:56] VITALS: BP 152/77
--- NOTE | 2024-06-22 14:04 | W.DCSUMMARY ---
Discharge Summary
Discharge Data
Date of Admission: 06/19/24
Date of Discharge: 06/22/24
-
Pending Results: No
Hospital Course
Principal Diagnosis:
Ambulatory dysfunction: Multifactorial in the setting of back pain due to muscular strain, compression fractures, reported cognitive decline with possible new onset dementia
Right sided lumbar area pain likely musculoskeletal (MSL) strain
Chronic Diagnoses:�
Vertebral compression fractures, however patient denies to midline back pain
Hyponatremia, mild to moderate
Paramyotonia congenita (muscle weakness aggravated by triggers such as cold and abnormal serum electrolyte levels on home Valium
Possible cognitive decline, outpatient cognitive evaluation
Constipation likely opiate induced
Hypertension,
GERD
Consultations:�
Interventional radiology
Procedures:�
None
Clinical course:�
This is a 78-year-old female with medical history as stated above, who presented from rehab facility with intractable back pain. She fell about 1 month ago, was evaluated at [facility] 1 week prior for her pain and discharged 4 days prior
to arrival to a nursing facility. The patient and her family have been dissatisfied with the care at the nursing facility and are concerned with her ongoing back pain, which is why they presented to [facility].
Problem 1:
Ambulatory dysfunction: Multifactorial in the setting of back pain due to muscular strain, compression fractures, reported cognitive decline with possible new onset dementia.
Patient was discharged to SNF for PT OT recommendation.
Problem 2:
R sided lumbar pain likely MSL strain.
[place] unlikely to be related to compression fracture due to the absence of midline back pain.
She can continue pain control with lidocaine patch over the R lumbar area, Tylenol and Motrin as needed.
Avoiding opioids due to complaint of constipation.
As for the rest of her medical problems, they were stable during her hospital stay.
Discharge Plan
-
Patient Disposition: Prison/SNF
Discharge Diagnosis/Procedures: Ambulatory dysfunction (Multifactorial in the setting of back pain due to muscular strain, compression fractures, reported cognitive decline with possible new onset dementia);
Right sided lumbar area pain likely muscular skeletal strain;
Vertebral compression fractures (suspect subacute to chronic, patient denies to midline back pain)
Condition: Fair
Diet: As tolerated and Other diet
Additional Diets: soft and bite size diet
Activity: As tolerated
Driving Restrictions: Not until seen by your Dr
Referrals:
Kaushik Vale MD [Family Provider] - in less than 1 week
Additional Discharge Medication Instructions: Avoid tramadol due to constipation
Prescriptions:
New
acetaminophen 325 mg Tablet
650 mg PO Q4HPRN PRN (Reason: mild pain/THOMPSON/temp> 100.4F) Qty: 20 0RF
ibuprofen 400 mg Tablet
400 mg PO Q4HPRN PRN (Reason: mild pain) Qty: 20 0RF
Continued
losartan 50 mg Tablet
50 mg PO DAILY
clonidine HCl 0.1 mg Tablet
0.1 mg PO DAILY
lidocaine [Aspercreme (lidocaine)] 4 % Adhesive Patch,Medicated
1 patch TOPICAL DAILY
Rx Instructions:
lower back
polyethylene glycol 3350 [Miralax] 17 gram Powder In Packet
17 g PO [id number] PRN (Reason: no bm in 72 hours)
ondansetron HCl 4 mg Tablet
4 mg PO Q6HPRN PRN (Reason: nausea/vomiting)
sennosides-docusate sodium 8.6-50 mg Tablet
1 tab-cap PO BID
therapeutic multivitamin Tablet
1 tab PO DAILY
amlodipine 5 mg Tablet
5 mg PO DAILY
flaxseed oil 1,000 mg Capsule
1,000 mg PO DAILY
magnesium hydroxide [Milk of Magnesia] 400 mg/5 mL Suspension
30 ml PO [id number] PRN (Reason: no bm in 3 days)
bisacodyl [Dulcolax (bisacodyl)] 10 mg Suppository
10 mg NV DAILYPRN PRN (Reason: no result from mom)
cyanocobalamin (vitamin B-12) 1,000 mcg/mL Solution
1,000 mcg IM QMONTH
azelastine 137 mcg (0.1 %) [place],Non-Aerosol
1 spray INTRANASAL BID
albuterol sulfate 90 mcg/actuation Hfa Aerosol Inhaler
2 puff INHALATION R Q6HPRN PRN (Reason: SOB/WHEEZING)
vitamin E 268 mg (400 unit) Capsule
268 mg PO DAILY
cholecalciferol (vitamin D3) 25 mcg (1,000 unit) Tablet
75 mcg PO DAILY
PreserVision AREDS-2 250-90-40-1 mg Capsule
1 tab PO DAILY
diazepam [Valium] 5 mg Tablet
2.5 mg PO BIDPRN PRN (Reason: spasms/anxiety) Qty: 5 0RF
Rx Instructions:
Take for 14 days. Started on 06/15/2024
Discontinued
tramadol 50 mg Tablet
50 mg PO Q6HPRN PRN (Reason: MODERATE PAIN)
Discharge Orders:
Discharge Patient (As Directed); Ordered 06/22/24
Ordered By: Magalie Wagoner
Discharge Date and Time
Print Language: JORDANIAN
== END 2024-06-22 16:33 ==
LOC: 4 EAST ACU 19:02
PROVIDERS: Clinical Nurse Specialist Family Health; Physician Assistant; ADMITTING PHYSICIAN Internal Medicine; ATTENDING PHYSICIAN Internal Medicine; EMERGENCY PHYSICIAN Student in an Organized Health Care Education/Training Program; FAMILY PHYSICIAN Family Medicine
DX: S39.012A Strain of muscle, fascia and tendon of lower back, initial encounter (principal); S22.070A Wedge compression fracture of T9-T10 vertebra, initial encounter for closed fracture; M54.9 Dorsalgia, unspecified; R26.2 Difficulty in walking, not elsewhere classified; W19.XXXA Unspecified fall, initial encounter; Y93.9 Activity, unspecified; Y92.9 Unspecified place or not applicable; R64 Cachexia; I10 Essential (primary) hypertension; E53.8 Deficiency of other specified B group vitamins; E55.9 Vitamin D deficiency, unspecified; F41.9 Anxiety disorder, unspecified; R32 Unspecified urinary incontinence; G71.19 Other specified myotonic disorders; F10.90 Alcohol use, unspecified, uncomplicated; S22.060A Wedge compression fracture of T7-T8 vertebra, initial encounter for closed fracture; E87.1 Hypo-osmolality and hyponatremia; M47.816 Spondylosis without myelopathy or radiculopathy, lumbar region; M41.9 Scoliosis, unspecified; M62.81 Muscle weakness (generalized); E87.8 Other disorders of electrolyte and fluid balance, not elsewhere classified; K21.9 Gastro-esophageal reflux disease without esophagitis; R41.89 Other symptoms and signs involving cognitive functions and awareness; D64.9 Anemia, unspecified; R74.01 Elevation of levels of liver transaminase levels; R74.8 Abnormal levels of other serum enzymes; K59.00 Constipation, unspecified; Z60.2 Problems related to living alone; Z68.1 Body mass index [BMI] 19.9 or less, adult; Z98.82 Breast implant status; Z91.81 History of falling; Z88.1 Allergy status to other antibiotic agents; Z91.040 Latex allergy status
CPT/HCPCS: 72072; 72110; 72146; 72148; 80048; 80053; 81003; 81015; 83690; 83930; 83935; 84300; 84443; 85025; 87070; 87077; 87086; 87186; 97163; 97167; 99284; G0378

== ENCOUNTER → 2024-06-25 10:06 | Outpatient (REF) | payer OTHER, SELFPAY ==
[2024-06-25 11:30] LABS: % Basophils 0.6 % (0-2); % Eosinophils 1.4 % (0-6); % Immature Granulocytes 0.3 % (0-0.5); % Lymphocytes 30.5 % (20.5-51.1); % Neutrophils 60.2 % (42.2-75.2); Absolute Eosinophils 0.1 10^3/uL (0-0.7); Absolute Lymphocytes 2.2 10^3/uL (1.2-3.4); Absolute Monocytes 0.5 10^3/uL (0.1-0.6); Absolute Neutrophils 4.3 10^3/uL (1.4-6.5); Hematocrit 34.3 % (37.0-47.0); Hemoglobin 11.4 g/dL (12.0-16.0); Mean Corp Hgb Conc. 33.2 g/dL (33.0-37.0); Mean Corpuscular Hgb 25.6 pg (27.0-31.0); Mean Corpuscular Volume 76.9 fL (81.0-99.0); Mean Platelet Volume 8.6 fL (7.4-10.4); Nucleated Red Blood Cells % 0 %; Platelet Count 390 10^3/uL (130-400); Red Blood Cell Count 4.46 10^6/uL (4.20-5.40); Red Cell Dist. Width 13.7 % (11.5-14.5); White Blood Cell Count 7.1 10^3/uL (4.8-10.8)
[2024-06-25 11:38] LABS: Blood Urea Nitrogen 11 mg/dl (7-17); Calcium 9.1 mg/dl (8.4-10.2); Carbon Dioxide 25 mmol/L (22-30); Chloride 98 mmol/L (98-107); Glucose 121 mg/dl (70-99); Potassium 3.6 mmol/L (3.5-5.1); Sodium 132 mmol/L (135-145); eGFR > 60.00
== END ==
LOC: OLABP 10:06
PROVIDERS: ATTENDING PHYSICIAN Family Medicine
DX: N39.498 Other specified urinary incontinence (principal); G20.A1 Parkinson's disease without dyskinesia, without mention of fluctuations; J10.1 Influenza due to other identified influenza virus with other respiratory manifestations; E11.9 Type 2 diabetes mellitus without complications; E87.1 Hypo-osmolality and hyponatremia; I48.0 Paroxysmal atrial fibrillation; I10 Essential (primary) hypertension; M62.59 Muscle wasting and atrophy, not elsewhere classified, multiple sites; S22.070D Wedge compression fracture of T9-T10 vertebra, subsequent encounter for fracture with routine healing; R26.2 Difficulty in walking, not elsewhere classified; R64 Cachexia; M54.9 Dorsalgia, unspecified; E55.9 Vitamin D deficiency, unspecified; D51.9 Vitamin B12 deficiency anemia, unspecified; F41.9 Anxiety disorder, unspecified
CPT/HCPCS: 36415; 80048; 85025

== ENCOUNTER → 2024-06-28 16:25 | Outpatient (REF) | payer OTHER, SELFPAY ==
[2024-06-28 17:54] LABS: Urine Albumin 2+ (Neg - Trace); Urine Bilirubin Negative (Negative); Urine Character Slightly Cloudy (Clear); Urine Color Yellow; Urine Glucose Negative (Negative); Urine Ketone 1+ (Negative); Urine Leukocyte 3+ (Negative); Urine Nitrite Negative (Negative); Urine Occult Blood 1+ (Negative); Urine Specific Gravity 1.015 (<1.030); Urine Urobilinogen Negative (Neg - 1+)
[2024-06-28 18:05] LABS: Urine Bacteria Moderate (Negative); Urine Squamous Cell 0-2 /LPF (Few); Urine White Cell 16-20 /HPF (0-5)
== END ==
LOC: OLABP 16:25
PROVIDERS: ATTENDING PHYSICIAN Family Medicine
DX: G20.A1 Parkinson's disease without dyskinesia, without mention of fluctuations (principal); L03.90 Cellulitis, unspecified; J10.1 Influenza due to other identified influenza virus with other respiratory manifestations; E11.9 Type 2 diabetes mellitus without complications; E87.1 Hypo-osmolality and hyponatremia; I48.0 Paroxysmal atrial fibrillation; I10 Essential (primary) hypertension; M62.59 Muscle wasting and atrophy, not elsewhere classified, multiple sites; S22.070D Wedge compression fracture of T9-T10 vertebra, subsequent encounter for fracture with routine healing; R26.2 Difficulty in walking, not elsewhere classified; R64 Cachexia; M54.9 Dorsalgia, unspecified; Z68.1 Body mass index [BMI] 19.9 or less, adult; F41.9 Anxiety disorder, unspecified; E55.9 Vitamin D deficiency, unspecified; D51.9 Vitamin B12 deficiency anemia, unspecified
CPT/HCPCS: 81003; 81015; 87086; 87088; 87186

== ENCOUNTER → 2025-03-08 14:12 | Outpatient (REF) | payer OTHER, SELFPAY | LOC: PAVMRI 14:12 | PROVIDERS: ATTENDING PHYSICIAN Podiatrist; FAMILY PHYSICIAN Family Medicine | DX: S86.011A Strain of right Achilles tendon, initial encounter (principal) | CPT/HCPCS: 73721 ==